=== PATIENT | female | born 1960 | race Caucasian/White ===

== ENCOUNTER 2019-03-24 18:34 | Emergency (ER) | payer BC ==
[2019-03-24] MEDS ORDERED: NA CHLORIDE 0.9% 1,000 ML ONE (19:10)
--- NOTE | 2019-03-24 19:27 | RAD REPORT ---
EXAM DESCRIPTION: RAD - Chest Single View - 03/24/2019 7:04 pm CLINICAL HISTORY: Syncope, shortness of breath COMPARISON: None. TECHNIQUE: AP portable chest image was obtained 1900 hours . FINDINGS: Lungs are clear. Heart and vasculature are normal. No measurable pleural effusion and no p neumothorax. No acute bony abnormality seen. No acute aortic findings suspected. IMPRESSION: No acute cardiopulmonary process.
--- NOTE | 2019-03-24 19:38 | RAD REPORT ---
EXAM DESCRIPTION: CT - Head Brain Wo Cont - 03/24/2019 7:13 pm CLINICAL HISTORY: Syncope COMPARISON: None. TECHNIQUE: Axial 5 mm thick images of the head were obtained without IV contrast. All CT scans are performed using dose optimization technique as appropriate and may include automated exposure control or mA/KV adjustment according to patient size. FINDINGS: No intracranial hemorrhage, mass, edema or shift of mid-line structures. No acute infarcti on changes seen. No abnormal extra-axial fluid collections. Ventricles are normal. No significant atr ophy or chronic ischemic change. Small rounded lucency lateral aspect right basal ganglia region is b elieved be normal perivascular space. Mastoid air cells and visualized portions of the paranasal sinuses are clear. No acute bony findings. IMPRESSION: Negative non-contrast CT head examination for acute or significant finding.
[2019-03-24 19:52] LABS: Absolute Lymphocytes (CBC) 1.3 K/uL (0.7-4.9); Basophils % 0.5 % (0-1.3); Hematocrit 38.5 % (36.0-45.0); Lymphocytes % 22.2 % (15.3-44.8); MPV 7.9 fL (7.6-11.3); RBC Red Blood Cell Count 4.46 M/uL (3.86-4.86)
[2019-03-24 19:57] LABS: Protime INR 0.97
[2019-03-24 20:08] LABS: ALT/SGPT 21 U/L (12-78); AST/SGOT 17 U/L (15-37); Albumin 4.1 g/dL (3.4-5.0); Alkaline Phosphatase 104 U/L (45-117); BUN Blood Urea Nitrogen 21 mg/dL (7-18); Bicarbonate 29 mmol/L (21-32); Bilirubin Direct < 0.1 mg/dL (0-0.2); Bilirubin Total 0.3 mg/dL (0.2-1.0); Glucose Level 101 mg/dL (74-106); Magnesium 2.5 mg/dL (1.8-2.4); NT PRO-BNP 19 pg/mL (<125); Potassium 3.6 mmol/L (3.5-5.1); Protein, Total 7.1 g/dL (6.4-8.2); Sodium Level 141 mmol/L (136-145); Troponin (Emerg Dept Use Only) < 0.02 ng/mL (0.0-0.045)
--- NOTE | 2019-03-24 20:47 | ER ---
Nurse's Notes [facility] Name: Erica Cantu Age: 59 yrs Sex: Female : 1960 Arrival Date: 03/24/2019 Time: 18:43 Bed 17 Private MD: Diagnosis: Dehydration Presentation: 03/24 18:43 Presenting complaint: EMS states: Reports having episode of dizziness nausea and ph sweating this morning which resolved, happened again approx 1 hour ago while at work, co workers report that pt had 2 syncopal episodes which pt does not recall, VSS, orthostatics negative, systolic BP in 130s, HR 70s NSR, BGL 110. Transition of care: patient was not received from another setting of care. Onset of symptoms was March 24, 2019. Risk Assessment: Do you want to hurt yourself or someone else? Patient reports no desire to harm self or others. Initial Sepsis Screen: Does the patient meet any 2 criteria? No. Patient's initial sepsis screen is negative. Does the patient have a suspected source of infection? No. Patient's initial sepsis screen is negative. Care prior to arrival: Glucose check: 110. 18:43 Method Of Arrival: EMS: [facility] ph 18:43 Acuity: JL 3 ph Triage Assessment: 19:15 General: Appears in no apparent distress. comfortable. Neuro: Reports dizziness, since cc3 today. Historical: - Allergies: 19:15 PENICILLINS; cc3 19:15 Abilify; cc3 19:15 antidote to abilify; cc3 - Immunization history:: Adult Immunizations up to date. - Social history:: Patient/guardian denies using alcohol, street drugs, The patient lives with family, Smoking status: Patient/guardian denies using tobacco, never smoked. - Family history:: not pertinent, pertinent for. - Ebola Screening: : No symptoms or risks identified at this time. - Hospitalizations: : No recent hospitalization is reported. Screenin:15 Abuse screen: Denies threats or abuse. Denies injuries from another. Nutritional cc3 screening: No deficits noted. Tuberculosis screening: No symptoms or risk factors identified. Fall Risk Ambulatory Aid- None/Bed Rest/Nurse Assist (0 pts). Gait- Normal/Bed Rest/Wheelchair (0 pts) Mental Status- Oriented to own ability (0 pts). Assessment: 19:15 General: Appears in no apparent distress. comfortable, Behavior is calm, cooperative, cc3 appropriate for age. Pain: Denies pain. Neuro: Level of Consciousness is awake, alert, obeys commands, Oriented to person, place, time, situation, Appropriate for age. Cardiovascular: Denies chest pain, Heart tones S1 S2 present Capillary refill < 3 seconds in bilateral fingers Patient's skin is warm and dry. Rhythm is sinus rhythm. Respiratory: Airway is patent Respiratory effort is even, unlabored, Respiratory pattern is regular, symmetrical, Breath sounds are clear bilaterally. GI: Abdomen is round non-distended. : No signs and/or symptoms were reported regarding the genitourinary system. EENT: No signs and/or symptoms were reported regarding the EENT system. Derm: Skin is intact, is healthy with good turgor, Skin is pink, warm \T\ dry. normal. Musculoskeletal: Circulation, motion, and sensation intact. Range of motion: intact in all extremities. 20:18 Reassessment: Patient appears in no apparent distress at this time. Patient and/or cc3 family updated on plan of care and expected duration. Pain level reassessed. Patient is alert, oriented x 3, equal unlabored respirations, skin warm/dry/pink. Patient denies pain at this time. Patient states feeling better. Patient states symptoms have improved. 21:00 Reassessment: Patient appears in no apparent distress at this time. Patient and/or cc3 family updated on plan of care and expected duration. Pain level reassessed. Patient is alert, oriented x 3, equal unlabored respirations, skin warm/dry/pink. Dr. Clemens discharged the patient home, no prescription given. IV cannula removed and patient left ER vitally stable and ambulatory with her friend. No valuables left in the patient's room. Patient denies pain at this time. Patient states feeling better. Patient states symptoms have improved. Vital Signs: 18:46 BP 112 / 68; Pulse 72; Resp 18; Temp 98.0; Pulse Ox 98% on R/A; ph 19:30 BP 105 / 59; Pulse 70; Resp 18 S; Temp 98.3(O); Pulse Ox 100% on R/A; Pain 0/10; cc3 20:17 BP 116 / 65; Pulse 70; Resp 16 S; Pulse Ox 100% on R/A; cc3 21:00 BP 115 / 80; Pulse 73; Resp 16 S; Pulse Ox 100% on R/A; Pain 0/10; cc3 ED Course: 18:43 Patient arrived in ED. ph 18:46 Edith Clemens MD is Attending Physician. ma2 18:46 Triage completed. ph 19:02 XRAY Chest (1 view) In Process Unspecified. EDMS 19:07 Kelly Green RN is Primary Nurse. ph 19:15 CT Head Brain wo Cont In Process Unspecified. EDMS 19:15 Arm band placed on right wrist. EKG completed in triage. Results shown to MD. cc3 19:15 Patient has correct armband on for positive identification. Placed in gown. Bed in low cc3 position. Call light in reach. Side rails up X 1. patient monitor on. Pulse ox on. NIBP on. 21:00 No provider procedures requiring assistance completed. IV discontinued, intact, cc3 bleeding controlled, No redness/swelling at site. Pressure dressing applied. Administered Medications: 19:30 Drug: NS 0.9% 1000 ml Route: IV; Rate: 1 bolus; Site: right antecubital; cc3 20:30 Follow up: Response: No adverse reaction; IV Status: Completed infusion; IV Intake: cc3 1000ml Point of Care Testing: Blood Glucose: 20:08 Blood Glucose: 101 mg/dL; cc3 20:08 serum glucose result from lab cc3 Ranges: Intake: 20:30 IV: 1000ml; Total: 1000ml. cc3 Outcome: 20:46 Discharge ordered by . ma2 21:00 Discharged to home ambulatory, with friend. cc3 21:00 Condition: stable 21:00 Discharge instructions given to patient, Instructed on discharge instructions, follow up and referral plans. Demonstrated understanding of instructions, follow-up care. 21:15 Patient left the ED. cc3 Signatures: Dispatcher [employer] Kelly Jordan RN RN Edith Clemens MD MD ma2 Cordel, Charlene cc3 Corrections: (The following items were deleted from the chart) 21:09 19:30 BP 105 / 59; Pulse 70bpm; Resp 18bpm; Spontaneous; Pulse Ox 100% RA; Temp 98.3F cc3 Oral; cc3
--- NOTE | 2019-03-24 20:47 | EDPHYS ---
Physician Documentation [facility] Name: Erica Cantu Age: 59 yrs Sex: Female : 1960 Arrival Date: 03/24/2019 Time: 18:43 Bed 17 Private MD: ED Physician Edith Clemens HPI: 03/24 18:47 This 59 yrs old Female presents to ER via EMS with complaints of Syncope. ma2 18:47 The patient has experienced syncope. Onset: The symptoms/episode began/occurred ma2 suddenly, gradually, 1 hour(s) ago. Duration: This was a single episode. Associated injury: The patient did not suffer any apparent associated injury. Associated signs and symptoms: Pertinent negatives: agitation, blurred vision, combativeness, confusion. Current symptoms: Currently, the patient is not experiencing any symptoms. The patient has not experienced similar symptoms in the past. Historical: - Allergies: 19:15 PENICILLINS; cc3 19:15 Abilify; cc3 19:15 antidote to abilify; cc3 - Immunization history:: Adult Immunizations up to date. - Social history:: Patient/guardian denies using alcohol, street drugs, The patient lives with family, Smoking status: Patient/guardian denies using tobacco, never smoked. - Family history:: not pertinent, pertinent for. - Ebola Screening: : No symptoms or risks identified at this time. - Hospitalizations: : No recent hospitalization is reported. ROS: 18:47 Constitutional: Negative for fever, chills, and weight loss, Cardiovascular: Negative ma2 for chest pain, palpitations, and edema. 18:47 All other systems are negative. Exam: 18:47 Abdomen/GI: Exam negative for ma2 18:47 Constitutional: This is a well developed, well nourished patient who is awake, alert, and in no acute distress. Head/Face: Normocephalic, atraumatic. Eyes: Pupils equal round and reactive to light, extra-ocular motions intact. Lids and lashes normal. Conjunctiva and sclera are non-icteric and not injected. Cornea within normal limits. Periorbital areas with no swelling, redness, or edema. ENT: Nares patent. No nasal discharge, no septal abnormalities noted. Tympanic membranes are normal and external auditory canals are clear. Oropharynx with no redness, swelling, or masses, exudates, or evidence of obstruction, uvula midline. Mucous membranes moist. Neck: Trachea midline, no thyromegaly or masses palpated, and no cervical lymphadenopathy. Supple, full range of motion without nuchal rigidity, or vertebral point tenderness. No Meningismus. Chest/axilla: Normal chest wall appearance and motion. Nontender with no deformity. No lesions are appreciated. Cardiovascular: Regular rate and rhythm with a normal S1 and S2. No gallops, murmurs, or rubs. Normal PMI, no JVD. No pulse deficits. Respiratory: Lungs have equal breath sounds bilaterally, clear to auscultation and percussion. No rales, rhonchi or wheezes noted. No increased work of breathing, no retractions or nasal flaring. Abdomen/GI: Soft, non-tender, with normal bowel sounds. No distension or tympany. No guarding or rebound. No evidence of tenderness throughout. MS/ Extremity: Pulses equal, no cyanosis. Neurovascular intact. Full, normal range of motion. Neuro: Awake and alert, GCS 15, oriented to person, place, time, and situation. Cranial nerves II-XII grossly intact. Motor strength 5/5 in all extremities. Sensory grossly intact. Cerebellar exam normal. Normal gait. Vital Signs: 18:46 BP 112 / 68; Pulse 72; Resp 18; Temp 98.0; Pulse Ox 98% on R/A; ph 19:30 BP 105 / 59; Pulse 70; Resp 18 S; Temp 98.3(O); Pulse Ox 100% on R/A; Pain 0/10; cc3 20:17 BP 116 / 65; Pulse 70; Resp 16 S; Pulse Ox 100% on R/A; cc3 21:00 BP 115 / 80; Pulse 73; Resp 16 S; Pulse Ox 100% on R/A; Pain 0/10; cc3 MDM: 18:46 Patient medically screened. [facility] 18:47 Differential Diagnosis: cardiac arrhythmia, emotional response, idiopathic syncope, ma2 vasovagal episode. 20:46 Data reviewed: vital signs, nurses notes. Counseling: I had a detailed discussion with ma2 the patient and/or guardian regarding: the historical points, exam findings, and any diagnostic results supporting the discharge/admit diagnosis, the presence of at least one elevated blood pressure reading (>120/80) during this emergency department visit, the need for outpatient follow up. Response to treatment: the patient's symptoms have markedly improved after treatment. 03/24 18:47 Order name: Basic Metabolic Panel; Complete Time: 20:45 ma2 03/24 18:47 Order name: CBC with Diff; Complete Time: 20:07 ma2 03/24 18:47 Order name: LFT's; Complete Time: 20:45 ma2 03/24 18:47 Order name: Magnesium; Complete Time: 20:45 ma2 03/24 18:47 Order name: NT PRO-BNP; Complete Time: 20:45 ma2 03/24 18:47 Order name: PT-INR; Complete Time: 20:07 ma2 03/24 18:47 Order name: Troponin (emerg Dept Use Only); Complete Time: 20:45 ma2 03/24 18:47 Order name: XRAY Chest (1 view); Complete Time: 19:47 ma2 03/24 18:47 Order name: EKG; Complete Time: 18:48 ma2 03/24 18:47 Order name: Cardiac monitoring; Complete Time: 19:08 ma2 03/24 18:47 Order name: EKG - Nurse/Tech; Complete Time: 19:08 ma2 03/24 18:47 Order name: IV Saline Lock; Complete Time: 20:27 ma2 03/24 18:47 Order name: CT Head Brain wo Cont; Complete Time: 19:47 ma2 03/24 18:47 Order name: Labs collected and sent; Complete Time: 20:27 ma2 03/24 18:47 Order name: O2 Per Protocol; Complete Time: 19:08 ma2 03/24 18:47 Order name: O2 Sat Monitoring; Complete Time: 19:08 ma2 Administered Medications: 19:30 Drug: NS 0.9% 1000 ml Route: IV; Rate: 1 bolus; Site: right antecubital; cc3 20:30 Follow up: Response: No adverse reaction; IV Status: Completed infusion; IV Intake: cc3 1000ml Point of Care Testing: Blood Glucose: 20:08 Blood Glucose: 101 mg/dL; cc3 20:08 serum glucose result from lab cc3 Ranges: Critical Glucose Levels:Adult <50 mg/dl or >400 mg/dl <40 mg/dl or >180 mg/dl Disposition: 03/24/19 20:46 Discharged to Home. Impression: Dehydration. - Condition is Stable. - Discharge Instructions: Dehydration, Adult. - Medication Reconciliation Form, Thank You Letter, Antibiotic Education, Prescription Opioid Use form. - Follow up: Private Physician; When: Tomorrow; Reason: Continuance of care. Signatures: Dispatcher [employer] EDND Edith Clemens MD MD ma2 Jolene Pace cc3 Corrections: (The following items were deleted from the chart) 21:15 20:46 03/24/2019 20:46 Discharged to Home. Impression: Dehydration. Condition is cc3 Stable. Forms are Medication Reconciliation Form, Thank You Letter, Antibiotic Education, Prescription Opioid Use. Follow up: Private Physician; When: Tomorrow; Reason: Continuance of care. jennie
[2019-03-24 22:57] VITALS: TEMP 98.3; O2SAT 100
[2019-03-24 23:01] VITALS: BP 115/80
--- NOTE | 2019-03-25 09:35 | EKG ---
Test Date: 2019-03-24 Test Time: 19:03:33 High Speed Printer Operator: DANNA MEASUREMENT RESULTS: Intervals: Rate: 70 ME: 148 QRSD: 74 QT: 452 QTc: 488 Mcgregor: P: 18 ME: 148 QRS: 30 T: 67 INTERPRETIVE STATEMENTS: Normal sinus rhythm Low voltage QRS Otherwise normal ECG No previous ECG available for comparison Electronically Signed On 03-25-19 09:34:38 CDT by Romain Rouse
== END 2019-03-24 21:15 | disposition home or self-care (01) ==
LOC: ER 18:34
DX: E86.0 Dehydration (principal); Z88.0 Allergy status to penicillin
CPT/HCPCS: 93005; 85025; 80048; 36415; 83735; 85610; 80076; 84484; 83880; 70450; 71045; 96360; 99284; J7030